=== PATIENT | male | born 1960 | race Caucasian/White ===

== ENCOUNTER 2018-11-20 07:35 | Day surgery (SDC) | payer OTHER ==
[~2018-11-20] VITALS: Ht 182.9 cm; Wt 94.3 kg
[2018-11-20] MEDS ORDERED: HYDROCODON-ACE1 EA11 PO (10:33)
--- NOTE | 2018-11-20 10:45 | NUR ---
11/20/18 Adrian5 Natasha Aguilar 1034-PATIENT ARRIVED TO PACU ON 10L MASK WEANED TO 6L. PATIENT REACTIVE TO VOICE OPENS EYES DENIES PAIN OR NAUSEA VERY DROWSY PATIENT ABLE TO SLIGHTLY WIGGLE 1ST FINGER. ELEVATED AND ICE TO BE APPLIED. DRESSING CDI. SR.
--- NOTE | 2018-11-20 11:30 | NUR ---
PT ARRIVES TO DS RM 12 FROM PACU AWAKE AND ALERT. PT DENIES ANY NAUSEA OR PAIN AND STATES RIGHT ARM IS NUMB. PT PROVIDED ICED WATER AND CRACKERS. PT PERSONAL BLANKET PROVIDED. PT DENTURE IN PLACE. PT FAMILY ARRIVES AND IS AT BEDSIDE. CALL LIGHT WITHIN REACH.
--- NOTE | 2018-11-20 11:40 | NUR ---
PT PROVIDED MORE ICED WATER AND PUDDING.
[2018-11-20] MEDS ORDERED: NORCO 7.5-3251 EACH PO (12:06)
--- NOTE | 2018-11-20 12:24 | NUR ---
PT TOLERATES PO WELL WITH NO NAUSEA. PT DENIES ANY PAIN AND STATES THAT RIGHT THUMB IS NUMB. PT WILL NOTIFY RN WHEN HE NEEDS TO VOID. FAMILY AT BEDSIDE.
--- NOTE | 2018-11-20 13:14 | NUR ---
[id number]: PT USES CALL LIGHT TO ALERT RN OF URGE TO VOID. PT SITS AT SIDE OF BED, DENIES DIZZINESS OR NAUSEA. PT AMBULATES WELL AND IS ABLE TO VOID QS WITH NO PROBLEMS. PT BACK IN ROOM, RN AND DAUGHTER ASSIST PT GETTING DRESSED. DC INSTRUCTIONS GIVEN IN PRESENCE OF PT AND DAUGHTER, ALL QUESTIONS ANSWERED. PT DC'S VIA WC HOME WITH DAUGHTER.
--- NOTE | 2018-11-25 08:32 | OR ---
[facility] [address], [place] [address] Signed DATE OF OPERATION: 11/20/2018 SURGEON: Steffanie Artis MD PREOPERATIVE DIAGNOSIS: Large rotator cuff tear with retraction. POSTOPERATIVE DIAGNOSIS: Large rotator cuff tear with retraction. PROCEDURE PERFORMED: Right shoulder arthroscopy with mini-open rotator cuff repair. ROUND KILN DRAWER: Karie Elizabeth PA-C. Karie was present and critical for positioning, retraction, and wound closure. ANESTHESIA: General. BLOOD LOSS: 75 mL. IMPLANTS: Two 4.75 SwiveLock. BRIEF HISTORY: Marni is a 58-year-old gentleman who injured his shoulder and has been dealing with it for quite a while. MRI was consistent with a large retracted rotator cuff tear. Due to his age and occupation, we discussed operative fixation and he elected to proceed. DESCRIPTION OF PROCEDURE: Once consent was obtained, he was taken to the operating room, placed in beach chair position. All downside pressure points were well padded. The shoulder was prepped and draped in a standard sterile fashion. Shoulder was injected with 20 mL of Marcaine and epinephrine. The standard posterior portal was made. The scope was then reduced in the shoulder. ARTHROSCOPIC FINDINGS: There was extensive synovitis found throughout the shoulder. Rotator cuff was torn from Electronically Signed By: STEFFANIE ARTIS MD 11/25/18 0832 PATIENT NAME: MARNI CUETO OPERATIVE REPORT DATE OF : 62 REPORT #: [id number] PHYSICIAN: STEFFANIE ARTIS MD PCP: NO PRIMARY CARE PHYSICIAN REPORT IS CONFIDENTIAL AND NOT TO BE RELEASED WITHOUT AUTHORIZATION [facility] [address], [place] [address] Signed the biceps posteriorly about 3 cm. It was fairly stiff on trying to reduce it as well. Subacromial space showed moderate bursitis throughout. Standard lateral and anterior lateral portal were made and the shoulder was debrided through the rotator cuff tear. The rotator cuff was then mobilized medially by removing the scar tissue at the top of the glenoid approximately 1 cm past the glenoid face. This allowed us to mobilize the edge of the tear to the articular margin. Two FiberTape sutures were placed in a buried mattress configuration through the body of the tear bringing it over. At this point, I elected to go ahead with a mini-open. We withdrew the scope and opened the anterior and lateral portal to an inch and a half. Under direct visualization, the remaining bursa was removed and the two anchors were placed in the tuberosity tightening the rotator cuff down to its natural position, although it was on some tension. We did abduct the arm to relieve this. Suture ends were cut. Shoulder was removed. There was range of motion and found to be stable. We then copiously irrigated the shoulder and closed the deltoid interval with 2-0 Vicryl, subcutaneous tissue with 2-0 Vicryl, and skin with tamera. ProWick dressing was applied. He was awakened and taken to the recovery room in satisfactory condition. He was placed in a pillow sling. Steffanie Artis MD BA/MODL /[id number] Copies: ~ Electronically Signed By: STEFFANIE ARTIS MD 11/25/18 0832 PATIENT NAME: MARNI CUETO OPERATIVE REPORT DATE OF : 62 REPORT #: [id number] PHYSICIAN: STEFFANIE ARTIS MD PCP: NO PRIMARY CARE PHYSICIAN REPORT IS CONFIDENTIAL AND NOT TO BE RELEASED WITHOUT AUTHORIZATION
== END 2018-11-20 13:00 | disposition home or self-care (01) ==
LOC: DS 07:35 → OPS 07:35 → DS 11:15 → OPS 11:15
PROVIDERS: Specialist
PROC: 0LQ10ZZ Repair Right Shoulder Tendon, Open Approach (ICD-10-PCS; principal; 2018-11-20 09:30)
DX: S46.011A Strain of muscle(s) and tendon(s) of the rotator cuff of right shoulder, initial encounter (principal); Z87.891 Personal history of nicotine dependence
CPT/HCPCS: 01630; 64415; 76942; C1713; J0330; J0690; J0735; J1100; J1885; J2250; J2405; J2704; J2765; J3010; J7120

== ENCOUNTER 2022-01-20 05:50 | Day surgery (SDC) | payer BC ==
[~2022-01-20] VITALS: Ht 182.9 cm; Wt 100.0 kg
--- NOTE | ~2022-01-20 | OR ---
[facility] [address] [place], [place] [address] Draft DATE OF OPERATION: 01/20/2022 SURGEON: Steffanie Artis MD PREOPERATIVE DIAGNOSIS: Rotator cuff tear, left shoulder. POSTOPERATIVE DIAGNOSIS: Rotator cuff tear, left shoulder. PROCEDURE PERFORMED: Left shoulder arthroscopy with rotator cuff repair. EXTENSION WORK DIRECTOR: None. ANESTHESIA: General. ESTIMATED BLOOD LOSS: Minimal. IMPLANTS: One 4.75 SwiveLock with FiberTape. BRIEF HISTORY: Gay is a 61-year-old gentleman with left shoulder pain. He had undergone successful right rotator cuff repair and wished to proceed with left. Risks, benefits, and alternatives were discussed with him and he understood and wished to proceed. Once consent was obtained, he was taken to the operating room. After adequate anesthesia, he was placed in the beach chair position. All downside pressure points well padded. The right arm was flexed and slightly abducted on a well-padded arm martines and shoulder was prepped and draped in a standard sterile fashion. Shoulder was injected with 15 mL of 0.25% Marcaine with epinephrine as was the subacromial space. The standard posterior portal was made. The scope was introduced into the shoulder. Standard anterior portal was made using an outside-in technique. Diagnostic Findings: The glenohumeral surfaces were intact. The labrum was frayed, but intact. There was marked synovitis throughout the shoulder, particularly the anterior half. The biceps showed some minor erosions, but no significant tendinosis. The PATIENT NAME: MARNI CUETO OPERATIVE REPORT DATE OF : 62 REPORT #: [id number] PHYSICIAN: STEFFANIE ARTIS MD PCP: NO PRIMARY CARE PHYSICIAN REPORT IS CONFIDENTIAL AND NOT TO BE RELEASED WITHOUT AUTHORIZATION [facility] [address] [place], [place] [address] Draft undersurface of the rotator cuff showed a 1 cm tear posterior to the biceps flap about a centimeter. Subacromial space showed significant bursitis with thickening of some fibrosis and a lot of inflammation. The rotator cuff tear was easily visualized. DESCRIPTION OF PROCEDURE: Diagnostic arthroscopy was undertaken as noted above. The shoulder itself was debrided of the synovitis and excess labral tissue. The undersurface of the rotator cuff and the tuberosity were debrided under direct visualization. The scope was then withdrawn, placed in subacromial space and the subacromial bursa was removed using a combination of the Mitek vapor and shaver. The tear was easily visualized, was debrided as well as the tuberosity. A good bleeding bony surface was obtained. Once this was completed, the FiberTape suture was placed in inverted mattress configuration in the tear using 4.75 SwiveLock at the edge of the tuberosity. We were able to pull the tear down, repaired in a stable position. Excellent bleeding was obtained. The suture ends were cut and the scope was withdrawn. Portals were closed with 3-0 nylon and dressed with Allevyn dressing and Opsite. He tolerated the procedure quite well. All sponge, needle, and instrument counts were correct. Steffanie Artis MD BA/MODL /[id number] Copies: ~ PATIENT NAME: NORYMARNI GAY OPERATIVE REPORT DATE OF : 62 REPORT #: [id number] PHYSICIAN: STEFFANIE ARTIS MD PCP: NO PRIMARY CARE PHYSICIAN REPORT IS CONFIDENTIAL AND NOT TO BE RELEASED WITHOUT AUTHORIZATION
[~2022-01-20 05:50] MED LIST: HYDROCODON-ACE1 EA11 PO; NORCO 7.5-3251 EACH PO
[2022-01-20] MEDS ORDERED: HYDROCODON-ACE1 EA11 PO (09:16)
[2022-01-20] MEDS ORDERED: DICLOFENAC SODI75 MG PO (09:16)
--- NOTE | 2022-01-20 10:20 | NUR ---
REPORT RECIEVED CARPENTER LABOR SUPERVISOR (RICCO). UPON ADMIT TO CCU PATIENT WITH DVX OF S/P L SHOULDER ARTHROSCOPY , AFIB RVR. IS ALERT AND ORIENTED. STATES HE NEED TO URINATE. UNABLE TO CONVINCE PATIENT TO USE URINAL, PATIENT AMBULATED TO BR, HR TO 140. DENIES DIZZINESS, CHEST PAIN OR SHORTNESS OF BREATH, TO BED AFTER USING BR W/O INCIDENT. PATIENT GIRLFRIEND IN ROOM. CARDIZEM INFUSING AT 5 MG/HR. WILL TITRATE ACCORDINGLY. ICE TO LEFT SHOULDER IS S/P LEFT SHOULDER ARTHROSCOPY, WHEN PATIENT WENT TO PACU FROM OR, MONITOR SHOWED AFIB WITH RVR.
--- NOTE | 2022-01-20 10:35 | NUR ---
CARDIZEM GTT INCREASED TO 10 MG/HR.
--- NOTE | 2022-01-20 11:12 | NUR ---
CARDIZEM 5 MG IV GIVEN PER DR. MOLINA ORDERS. NO CHANGE IN HR AFTER GIVEN.
--- NOTE | 2022-01-20 11:18 | NUR ---
01/20/22 1118 Sheets,Yessenia 0917 PT ARRIVED TO PACU COUGHING AND RED IN THE FACE, PT SITTING IN HIGH FOWLERS. A-FIB NOTED WITH INCREASED HR, CARBIDE TOOL MAKER AND SECOND RN WITH 2 OR RNS AT BEDSIDE. PT ENCOURAGED TO COUGH. PT REACTIVE BUT DOES NOT FOLLOW COMMANDS. PT DENIES SYMPTOMS OF CHEST PAIN OR SOB, 6L MASK IN PLACE AND SUCTION USED AND CLEAR SECRETIONS NOTED. 918 HR INCREASED TO 160S AND CARBIDE TOOL MAKER CALLED MD. DILTIAZEM PUSHED PER CARBIDE TOOL MAKER (SEE BLUE SHEET). PT WAKES OFF AND ON, PT REPORTS NUMBNESS IN ARM AND EDUCATION GIVEN ON BLOCK. PT DENIES PAIN. ORDER FOR EKG AND LABS RECEIVED. FOUR BEATS OF V-TACH NOTED. 920 EKG DONE AND RT AT BEDSIDE. 5 LEAD PLACED AND A-FIB CONTINUES. DILTIAZEM PUSHED PER CARBIDE TOOL MAKER AND MD MENA AT BEDSIDE. 0939 DILTIAZEM DRIP STARTED PER ADIA AND . 0944 SECOND IV STARTED AND LABS DRAWN. PT CONTINUES TO REST IN BED AND HR SLOWLY DECREASING AND REMAINS IN A-FIB. PT WAKES AND EDUCAITON GIVEN ON HR AND RHYTHM. PLAN OF CARE DISCUSSED. 1000 FRIEND AT BEDSIDE AND PT WAKES OFF AND ON. PT TRANSFERING TO CCU. 1020 REPORT TO CCU RN, TWO CCU RNS AT BEDSIDE. PT REPORTS THE NEED TO VOID AND REFUSED TO USE URINAL, PT STOOD IN BATHROOM WITH RN AND HR INCREASED TO 150S, EDUCATION GIVEN ON HR AND RHYTHM.
--- NOTE | 2022-01-20 11:30 | NUR ---
NORCO 2 TABS GIVEN FOR LEFT SHOULDER PAIN. HOB ELEVATED. LEFT ARM ELEVATED ON PILLOW. ICE REMAINS TO SHOULDER. STATES HE STILL CAN NOT FEEL HIS FINGERS OF LEFT HAND.
--- NOTE | 2022-01-20 12:00 | NUR ---
HAS BEEN TO THE BATHROOM A TOTAL OF 3 TIMES TO VOID LARGE AMOUNT OF URINE EACH TIME. HEART RATE TO 140 WITH AMBULATION. IS W/O S/S. PATIENT ASKING FOR HIS COPENHAGAN. NICOTINE L
--- NOTE | 2022-01-20 12:10 | NUR ---
DR. MOLINA UPDATED ON PATIENT HR AND CURRENT RATE OF CARDIZEM.ORDERS RECIEVED TO GIVE LOPRESSOR 5 MG IV AND MAG 2 GM IV.
--- NOTE | 2022-01-20 12:40 | NUR ---
LOPRESSOR 5 MG IV GIVEN PER ORDRES. AFTER LOPRESSOR GIVEN, HR TO 80-90, REMAINS IN AFIB. SLEEPY AFTER NORCO GIVEN.
--- NOTE | 2022-01-20 13:41 | NUR ---
CARDIZEM GTT TITRATED DOWN TO 5MG/HR.
--- NOTE | 2022-01-20 15:00 | NUR ---
SITTING UP IN BED EATING SECOND LUNCH, DENIES NAUSEA. ASKING MANY QUESTIONS ABOUT AFIB. EDUCATION GIVEN, HOWEVER, THIS WILL NEED TO BE REPEATED OFTEN PATIENT NOT UNDERSTANDING, CONTINUES TO ASK WHEN HE CAN GO HOME. HAS GOOD SENSATION IN LEFT HAND AND FINGERS.
--- NOTE | 2022-01-20 15:30 | NUR ---
C/O BOWERS, PATIENT STATES HE DRINKS A HALF POT TO A POT OF COFFEE DAILY, WILL GIVE PATIENT COFFEE. CARDIZEM GTT AT 5 MG/HR.
--- NOTE | 2022-01-20 17:40 | NUR ---
REVIEWING AFIB HANDOUT. CARDIZEM GTT INFUSING AT 15 MG/HR. HR 110. PATIENT FRIEND REMAINS IN ROON. PATIENT DENIES NEED FOR PAIN MEDICATION. STATES HE FEELS LIKE HIS LEFT ARM IS STILL ASLEEP. INC IN PLACE TO L SHOULDER. SCD'S ON.
--- NOTE | 2022-01-20 18:10 | NUR ---
update from RN. Pt on cardizem gtt to control HR. Montioring closely. NO plan for dc today.
--- NOTE | 2022-01-20 19:37 | NUR ---
REPORT TO NEXT SHIFT. LOPRESSOR 12.5 MG PO GIVEN PER ORDERS. HR-115.
--- NOTE | 2022-01-20 21:33 | NUR ---
ARRIVED TO SHIFT, HAND OFF REPORT GIVEN, FOCUSED ASSESSMENT ON PT COMPLETED, LABS AND ORDERS REVIEWED, EMAR REVIEWED, DILT DRIP CONFIRMED AND TITRATED PER PROTOCOL. PER DR MOLINA, BEGIN GIVING PO LOPRESSOR AND TITRATE DOWN DILT DRIP APPROPIATE. HEAD TO TOE ASSESSMENT COMPLETED, EVENING MEDICAITONS GIVEN PER JAN, POLAR ICE PACK APPLIED TO PTS LEFT SHOULDER, POSITIVE CMS PRESENT IN LEFT ARM, PT ASSISTED TO RESTROOM, EDUCATED PT ON AFIB AND WHY IT IS IMPORTANT HE STAYS IN THE CCU TONIGHT, PT STATES HE UNDERSTANDS HOWEVER STATES HE ALSO DOESNT NEED TO BE TAKING UP A BED, RN INFORMED PT HE IS NOT TAKING A BED AWAY FROM ANYONE, PT APPEARS TO UNDERSTAND. SPOKE TO DR MOLINA AT NURSES STATION REGARDING DILT DRIP AND HEART RATE, SPECIFICALLY INCREASED TACHYCARDIA DURING AMBULATION (PT REFUSES TO USE URINAL), PO DOSE OF LOPRESSOR INCREASED, WILL CONTINUE TO TITRATE DILT DRIP PER PROTOCOL
--- NOTE | 2022-01-21 03:10 | NUR ---
PT IN BED, NO COMPLAINTS, DILT DRIP TITRATED PER ORDER, LEFT ARM REMAINS IN SLING, POSITIVE CMS IN LEFT ARM, PT BECOMING MORE RECEPTIVE TO EDUCATION REGARDING AFIB AND TREATMENT NEEDS, WILL CONTINUE TO REINFORCE
--- NOTE | 2022-01-21 05:25 | NUR ---
PT RESTING IN BED, NO COMPLAINTS, POSITIVE CMS IN LEFT ARM, REMAINS IN SLING WITH POLAR CARE ON, ASSESSMENT UNCHANGED, DILT DRIP TITRATED PER MAR, WILL CONTINUE TO MONITOR
--- NOTE | 2022-01-21 08:00 | NUR ---
BERYL RN CARING FOR PATIENT. THIS RN IN TO ASSIST PATIENT WITH AM CARE. NO OTHER NEEDS AT THIS TIME. WILL CONTINUE TO CLOSELY MONITOR.
--- NOTE | 2022-01-21 09:01 | NUR ---
PATIENT SITTING UP IN BED DRINKING COFFEE. PATIENTS BREAKFAST ARRIVED. ASSISTED PATIENT TO SIT UP IN BED SO HE COULD EAT. PATIENT DENIES PAIN IN THE SHOULDER AT THIS TIME. PATIENTS HOME ICE MACHINE REFILLED WITH ICE. PATIENT ASSESSMENT AND VITALS COMPLETED. PATIENT BREATH SOUNDS CLEAR. BOWEL TONES ACTIVE. PATIENT ONLY WANTED 1 STOOL SOFTENER. MD HERNANDES IN TO SEE PATIENT. PER MD PATIENT DOES NOT NEED THE PILLOW CUSHION ON HIS SLING AND PATIENT MAY REMOVE SLING FOR SHORT PERIODS IN BED BUT IS NOT TO PUSH UP ON HAND AT ALL. WILL LEAVE SLING ON AT THIS TIME. MEDICATIONS GIVEN. PATIENTS HR IS BETTER CONTROLLED AT THIS TIME WITH HR 90-100. ASSESSMENT FOR WITHDRAWLS COMPELTED. NO SIGNS OF WITHDRAWLS NOTED AT THIS TIME. PATIENT HAS A BEER PROVIDED WITH BREAKFAST. WILL CONTINUE TO CLOSELY MONITOR.
--- NOTE | 2022-01-21 10:39 | NUR ---
PATIENT AMBULATED UP TO THE BATHROOM AND THE LENGTH OF THE DEPARTMENT. VS STABLE. HR 90-110 WITH ACTIVITY. PATIENT DENIES PAIN. LEFT ARM IN SLING. PATIENT DENIES ANY CONCERNS.
[2022-01-21] MEDS ORDERED: NICOTINE LOZENGE4 MG BUCCAL (11:59)
[2022-01-21] MEDS ORDERED: ASPIRIN EC325 MG PO (11:59)
[2022-01-21] MEDS ORDERED: METOPROLOL SUC100 MG PO (11:59)
--- NOTE | 2022-01-21 12:00 | NUR ---
LUNCH PROVIDED TO PATIENT. PATIENT RESTING IN BED WITH HIS SIGNIFICANT OTHER. MD MOLINA WILL DISCHARGE PATIENT TODAY. PATIENT AND FAMILY ARE AGREEABLE TO PLAN OF CARE. PATIENT WALKED WITH BERYL WARD AND HIS HEART RATE REMAINED CONTROLLED AT THAT TIME. JESSE REVIEWED PLAN OF CARE WITH CECILIO SAN. WILL PREPARE DISCHARGE.
--- NOTE | 2022-01-21 13:30 | NUR ---
REVIEWED DISCHARGE INSTRUCTIONS WITH PATIENT AND HIS SIGNIFICANT OTHER. ALL QUESTIONS ANSWERED. PATIENTS IV'S WERE DCD. PATIENTS BELONGINGS GATHERED AND SENT WITH PATIENT. PATIENT DISCHARGED AND CURRENTLY AWAITING OUTPATIENT SERVICE OF HAVING A HOLTER MONITOR PLACED AND ARRANGED BY RESPIRATORY THERAPY. NO OTHER NEEDS AT THIS TIME.
--- NOTE | 2022-01-21 14:00 | NUR ---
THIS RN ASSISTED PATIENT TO HIS VEHICLE. PATIENTS SIGMIFICANT OTHER WILL BE BRINGING HIM HOME. REMINDED TO STOP AND GET NEW MEDICATIONS AND TO STATRT HIS METOPROLOL THIS EVENING PER MD MOLINA.
--- NOTE | 2022-01-22 15:16 | EKG ---
[facility] [address] [place] [address] Signed Atrial fibrillation with rapid ventricular response Right bundle branch block Left anterior fascicular block Bifascicular block Inferior infarct , age undetermined Abnormal ECG When compared with ECG of 17-JAN-2022 11:32, Atrial fibrillation has replaced Sinus rhythm Vent. rate has increased BY 61 BPM T wave inversion now evident in Inferior leads Confirmed by THEO MOLINA MD ([id number]) on 01/22/2022 3:16:18 PM Electronically Signed By: THEO MOLINA MD 01/22/22 1516 PATIENT NAME: MARNI CUETO Electrocardiogram DATE OF : 62 PHYSICIAN: THEO MOLINA MD REPORT #: [id number] REPORT IS CONFIDENTIAL AND NOT TO BE RELEASED WITHOUT AUTHORIZATION
== END 2022-01-21 13:40 | disposition home or self-care (01) ==
LOC: DS 05:50 → CCU 10:40 → DS 01-21 13:40
PROVIDERS: ATTEND Specialist
PROC: 0LQ24ZZ Repair Left Shoulder Tendon, Percutaneous Endoscopic Approach (ICD-10-PCS; principal; 2022-01-20 07:50)
DX: M75.102 Unspecified rotator cuff tear or rupture of left shoulder, not specified as traumatic (principal); G89.18 Other acute postprocedural pain; I48.91 Unspecified atrial fibrillation; Z87.891 Personal history of nicotine dependence
CPT/HCPCS: 36415; 64415; 76942; 80053; 83735; 83880; 84443; 84484; 93005; 93010; A9270; C1713; J0690; J1100; J1885; J2001; J2250; J2405; J3411; J3475; J7121